=== PATIENT | male | born 1995 | race Caucasian/White ===

== ENCOUNTER 2017-03-30 17:06 | Emergency (ER) | payer OTHER ==
[~2017-03-30] VITALS: Ht 172.7 cm; Wt 123.8 kg
[~2017-03-30 17:06] MED LIST: ABILIFY PO; LISINOPRIL PO; PROZAC PO; RISPERDAL PO
--- NOTE | 2017-03-30 17:33 | NUR ---
Patient discharged to home in stable conditon. Written and verbal after care instructions given. Patient verbalizes understanding of instructions. Stressed f/u.
== END 2017-03-30 17:35 | disposition home or self-care (01) ==
LOC: ER 17:11
DX: L02.212 Cutaneous abscess of back [any part, except buttock and flank] (principal); F19.10 Other psychoactive substance abuse, uncomplicated
CPT/HCPCS: A4663